=== PATIENT | male | born 1950 | race Two or more races ===

== ENCOUNTER 2021-01-14 23:53 | Emergency (ER) | payer MEDICARE, OTHER ==
[~2021-01-14] VITALS: Ht 157.5 cm; Wt 47.7 kg
[~2021-01-14 23:53] MED LIST: NOCURR
[2021-01-15] MEDS ORDERED: ZOLPIDEM TARTRATE 10 MG TABLET PO PRN (07:30)
[2021-01-15] MEDS ORDERED: LORazepam 2 MG TABLET PO PRN (07:30)
[2021-01-15] MEDS ORDERED: HALOPERIDOL 5 MG TABLET PO PRN (07:30)
[2021-01-15 07:37] LABS: COVID AG,FIA SOURCE NASOPHARYNGEAL
[2021-01-16] MEDS ORDERED: ACETAMINOPHEN 325 MG TABLET PO ONE (22:30)
[2021-01-17] MEDS ORDERED: ACETAMINOPHEN 325 MG TABLET PO ONE (05:45)
[2021-01-17 05:58] VITALS: BP 138/71
== END 2021-01-17 17:45 | disposition home or self-care (01) ==
LOC: EMS 23:54
DX: F25.9 Schizoaffective disorder, unspecified (principal); I10 Essential (primary) hypertension; Z20.822 Contact with and (suspected) exposure to COVID-19; Z91.14 Patient's other noncompliance with medication regimen
CPT/HCPCS: 82962; 99285